=== PATIENT | male | born 1950 | race Caucasian/White ===

== ENCOUNTER → 2017-09-16 13:36 | Outpatient (CLI) | payer MEDICARE, OTHER, SELFPAY ==
[2017-09-16 14:27] LABS: Basophils # 0.1 K/mm3 (0-0.2); Basophils % 0.9 % (0.1-2.0); Eosinophils # 0.4 K/mm3 (0.0-0.4); Eosinophils % 6.1 % (0.1-12.0); Hematocrit 48.5 % (42.0-52.0); Hemoglobin 15.5 g/dL (14.1-18.0); Lymphocytes # 1.4 K/mm3 (0.7-4.5); Mean Corpuscular Hemoglobin 29.3 pg (27.0-31.2); Mean Corpuscular Volume 91.6 fl (80-94); Mean Platelet Volume 7.2 fl (7.4-10.4); Monocytes # 0.5 K/mm3 (0.1-1.0); Monocytes % 6.3 % (1.7-9.3); Neutrophils # 4.8 K/mm3 (1.8-7.8); Neutrophils % 66.8 % (37.0-80.0); Platelet Count 342 K/mm3 (142-424); Red Blood Count 5.29 M/mm3 (4.60-6.20); Red Cell Distribution Width 12.9 % (11.5-17.5); White Blood Count 7.1 K/mm3 (4.8-10.8)
[2017-09-16 15:10] LABS: Anion Gap 15.3 mEq/L (5-15); Blood Urea Nitrogen 25 mg/dL (7-18); Calcium 9.2 mg/dL (8.5-10.1); Carbon Dioxide 25 mmol/L (21.0-32.0); Chloride 103 mmol/L (98-107); Creatinine,Serum 1.23 mg/dL (0.70-1.30); Estimated Glomerular Filt Rate 58 ml/min (>60); GFR (African American) 71 ML/MIN (>60); Glucose 96 mg/dL (74-106); Potassium 4.3 mmoL/L (3.5-5.1); Sodium 139 mmol/L (136-145)
== END ==
PROVIDERS: Visit Provider Surgery
DX: Z01.818 Encounter for other preprocedural examination (principal); Z86.010 Personal history of colon polyps
CPT/HCPCS: 36415; 80048; 85025; 93005

== ENCOUNTER 2020-09-04 09:15 | Emergency (ER) | payer MEDICARE, OTHER, SELFPAY ==
[2020-09-04 09:15] VITALS: BP 141/91; PULSE 101; RESP 19; TEMP 37; O2SAT 94; BMI 34.9
--- NOTE | 2020-09-04 09:47 | HMH.EDUTC ---
[facility] [place] Impression: Gout attack Qualifiers: Gout site: unspecified site Gout etiology: unspecified cause Qualified Code(s): M10.9 - Gout, unspecified Disposition: Home, Self-Care Condition on Discharge: Good Instructions: Gout, DI for Gout, Colchicine Additional Instructions: Take medication as prescribed FOllow up with Family Doctor if any life threatening symptoms or no improvement Return if needed Straight to ER if any life threatening problems Prescriptions: Colchicine [Colcrys 0.6mg tablet] 0.6 mg PO DIRECTED #12 tab Transmission Status: Received by [id number] Referrals: Dannie Lepe MD [Primary Care Provider] - Time of Disposition: 10:02 Medical Decision Making - Quique Inquiry Pt receiving controlled substance: No Quique was queried for this patient: No Vital Signs: 09/04/20 09:15 09/04/20 10:12 Temperature 98.6 F 98.6 F Temperature Source Oral Pulse Rate 101 H Pulse Rate [Left Brachial] 101 H Respiratory Rate 19 19 Blood Pressure 141/91 H Blood Pressure [Left Arm] 141/91 H Blood Pressure Mean [Left Arm] 107 Blood Pressure Source [Left Arm] Automatic Cuff Blood Pressure Position [Left Arm] Sitting 02 Sat by Pulse Oximetry 94 L Oxygen Delivery Method Room Air Orders (Tests/Meds): ED MEDICATIONS Discontinued Medications Generic Name Dose Route Start Last Admin Trade Name Alan PRN Reason Stop Dose Admin Methylprednisolone Sodium Succinate 125 mg 09/04/20 09:54 09/04/20 10:01 Methylprednisolone Sod Succ 125mg Vial IM 09/04/20 09:55 125 mg ONCE ONE Administration Medical Decision Narrative: Patient denies any renal problems Medications [place] with [place] [facility] [place] - General Stated complaint: gout Time Seen by Provider: 09/04/20 09:51 Mode of Arrival: Ambulatory Source of Information: Patient Limitations: No Limitations Description of Symptoms (Recalled from Triage Doc. by RN): PATIENT C/O GOUT TO RIGHT GREAT TOE HEENT Symptoms (Recalled from RN notes): No Resp Symptoms (Recalled from RN notes): No Skin Symptoms (Recalled from RN notes): No MS Symptoms (Recalled from RN notes): Yes Functional Status (Recalled from RN notes): WNL - History of Present Illness Provider Complaint: Patient state that he has a history of gout State that he felt it coming on a couple days ago and has continued to get worse States that today his right great toe was hurting worse so he came in to get it treated before it got too bad - Related Data Home Medications Medication Instructions Recorded Confirmed Clopidogrel Bisulfate [Plavix 75mg 75 mg PO DAILY 09/04/20 09/04/20 Tab] Lisinopril/Hydrochlorothiazide 1 tab PO DAILY 09/04/20 09/04/20 [Lisinopril-Hctz 20-25 mg Tab*] Metoprolol Succinate [Metoprolol 25 mg PO DAILY 09/04/20 09/04/20 Succinate 25mg Tablet*] Omeprazole [Omeprazole 20mg 20 mg PO DAILY 09/04/20 09/04/20 Capsule] Previous Rx's Medication Instructions Recorded Colchicine [Colcrys 0.6mg tablet] 0.6 mg PO DIRECTED #12 tab 09/04/20 Allergies Allergy/AdvReac Type Severity Reaction Status Date / Time codeine Allergy Intermediate SKIN BUMPS Verified 09/24/17 13:30 - Worker's Comp Is this a Worker's Comp case?: No [facility] History - Hepatitis A Screen Drug use history?: No High risk sexual behaviors?: No History of sexually transmitted infection?: No Currently employed?: No Childcare worker?: No Do you have indoor plumbing?: Yes Do you have electricity?: Yes Attestation statement:: This patient has been screened for Hepatitis A risk factors. I have reviewed the patient's past medical history: Yes Medical History: Reports:: Aneurysm (ascending aorta aneurysm), Chronic Obstructive Pulmonary Disease (COPD), Gastroesophageal Reflux Disease(GERD), Hyperlipidemia, Hypertension Denies:: Diabetes Mellitus Type 1, Diabetes Mellitus Type 2, Internal Pacemaker, Lung Disease, Seizures
[2020-09-04 10:12] VITALS: BP 141/91; PULSE 101; RESP 19; TEMP 37; O2SAT 94
== END 2020-09-04 10:30 | disposition home or self-care (01) ==
PROVIDERS: Emergency Provider Nurse Practitioner; PCP Family Medicine
DX: M10.071 Idiopathic gout, right ankle and foot (principal); J44.9 Chronic obstructive pulmonary disease, unspecified; K21.9 Gastro-esophageal reflux disease without esophagitis; E78.5 Hyperlipidemia, unspecified; I10 Essential (primary) hypertension
CPT/HCPCS: G0463; 96372; 99202

== ENCOUNTER 2021-07-25 13:51 | Outpatient (RCR) | payer MEDICARE, OTHER, SELFPAY | END 2021-08-29 15:00 | disposition home or self-care (01) | LOC: PT 13:51 | DX: J44.9 Chronic obstructive pulmonary disease, unspecified (principal); C34.92 Malignant neoplasm of unspecified part of left bronchus or lung | CPT/HCPCS: 94626 ==

== ENCOUNTER → 2022-08-07 08:39 | Outpatient (POV) | payer MEDICARE, OTHER, SELFPAY | PROVIDERS: Visit Provider Dermatology | DX: Z00.00 Encounter for general adult medical examination without abnormal findings (principal) ==

== ENCOUNTER 2022-09-01 15:40 | Emergency (ER) | payer MEDICARE, OTHER, SELFPAY ==
[2022-09-01 15:41] VITALS: BP 188/95; PULSE 114; RESP 19; TEMP 36.8; O2SAT 97; BMI 38.7
--- NOTE | 2022-09-01 15:44 | HMH.EDGENADL ---
Discharge Plan Disposition Patient Disposition: Home, Self-Care Prescriptions Prescriptions: New valacyclovir [Valtrex] 1 gram tablet 1,000 mg PO Q8H 7 Days Qty: 21 0RF hydrocodone-acetaminophen 5-325 mg tablet 1 tab PO Q6H PRN (Reason: pain) 3 Days Qty: 12 0RF No Action metoprolol succinate 50 mg tablet extended release 24 hr 50 mg PO DAILY clopidogrel 75 mg tablet 75 mg PO DAILY tamsulosin 0.4 mg capsule 0.4 mg PO HS albuterol sulfate [Ventolin HFA] 90 mcg/actuation HFA aerosol inhaler 2 inh INHALATION Q4HP PRN (Reason: Breathing Problems) losartan-hydrochlorothiazide 50-12.5 mg tablet 1 tab PO DAILY finasteride 5 mg tablet 5 mg PO DAILY ezetimibe 10 mg tablet 10 mg PO DAILY rosuvastatin 20 mg tablet 20 mg PO HS Trelegy Ellipta 100-62.5-25 mcg blister with device 1 inh INHALATION DAILY omeprazole 20 MG capsule,delayed release(DR/EC) 20 mg PO DAILY Referrals Follow up/Referrals: Dannie Lepe MD [Primary Care Provider] - See instructions Activity Restrictions/Add. Instructions Additional Instructions/Restrictions: Your rash today is consistent with shingles or herpes zoster in the L2 and L3 distribution. There is no evidence of any widespread dissemination. Please return with any feelings of fever or feeling systemically ill. An antiviral medication and opiate has been prescribed for decreased duration and symptomatic control. I would advise that you follow-up close with your primary care doctor as you may need additional pain control and please be aware that postherpetic neuralgia could persist after the rash improves. Clinical Impressions Clinical Impression: Herpes zoster Instructions Patient Instructions: DI for Skin Abscess Discharge ED Provider: Fabrice Isaacs General Adult HPI General Chief complaint: Skin/Abscess/Foreign Body Stated complaint: rash on back and legs Time Seen by Provider: 09/01/22 15:45 History of Present Illness HPI narrative: Patient is a 72-year-old male who presents today with a rash on his back and his right inner groin that is very painful to the touch. This is been going on for a few days. He feels that it may be something associated with his kidneys given the location of the pain. He is currently getting treatment for cancer but this does not include any immune suppressing agents and he is not on any other immunosuppressant agents after giving me his medication list. No fevers or chills or feeling ill. Pain is moderate to severe and feels like [id number] and burning. Related Data Home Medications Medication Instructions Recorded Confirmed omeprazole 20 mg capsule,delayed 20 mg PO DAILY Acid reflux 09/04/20 09/01/22 release albuterol sulfate 90 mcg/actuation 2 inh inhalation Q4HP PRN 09/01/22 09/01/22 aerosol inhaler (Ventolin HFA) Breathing Problems clopidogrel 75 mg tablet 75 mg PO DAILY Blood thinner 09/01/22 09/01/22 ezetimibe 10 mg tablet 10 mg PO DAILY Cholesterol 09/01/22 09/01/22 finasteride 5 mg tablet 5 mg PO DAILY High blood pressure 09/01/22 09/01/22 fluticasone fur. 100 mcg-umeclid 1 inh inhalation DAILY Breathing 09/01/22 09/01/22 62.5 mcg-vilant 25 mcg problems inhalat.powder (Trelegy Ellipta) losartan 50 mg-hydrochlorothiazide 1 tab PO DAILY High blood pressure 09/01/22 09/01/22 12.5 mg tablet metoprolol succinate 50 mg 50 mg PO DAILY Heart rhythm 09/01/22 09/01/22 tablet,extended release 24 hr rosuvastatin 20 mg tablet 20 mg PO HS Cholesterol 09/01/22 09/01/22 tamsulosin 0.4 mg capsule 0.4 mg PO HS Prostate 09/01/22 09/01/22 Previous Rx's Medication Instructions Recorded hydrocodone 5 mg-acetaminophen 325 1 tab PO Q6H PRN pain 3 days #12 09/01/22 mg tablet tabs valacyclovir 1 gram tablet 1,000 mg PO Q8H 7 days #21 tabs 09/01/22 (Valtrex) Allergies Allergy/AdvReac Type Severity Reaction Status Date / Time codeine Allergy Intermediate S
[2022-09-01 16:07] VITALS: BP 188/95; PULSE 114; RESP 19; TEMP 36.8
== END 2022-09-01 16:08 | disposition home or self-care (01) ==
PROVIDERS: Emergency Provider Student in an Organized Health Care Education/Training Program; PCP Family Medicine
DX: B02.8 Zoster with other complications (principal); R21 Rash and other nonspecific skin eruption; Z87.891 Personal history of nicotine dependence
CPT/HCPCS: 99283; 99284